=== PATIENT | male | born 1990 | race Caucasian/White ===

== ENCOUNTER 2021-05-25 19:24 | Emergency (ER) | payer OTHER ==
[~2021-05-25] VITALS: Ht 182.9 cm; Wt 117.9 kg
[2021-05-25 20:18] LABS: BASOPHIL 0.6 % (0-2); HCT 43.7 % (42.0-52.0); HGB 15.1 g/dl (13.2-18.0); LYMPHOCYTE 33.2 % (15-48); MCH 30.1 pg (25.0-31.0); MCHC 34.6 g/dL (32.0-36.0); MCV 87.1 fL (78.0-100.0); MONOCYTE 8.2 % (0-12); MPV 8.8 fL (6.0-9.5); NEUTROPHIL 55.8 % (41-80); NRBC 0; PLT 327 K/uL (150-400); RBC 5.02 M/uL (4.70-6.00); RDW 11.8 % (11.5-14.0); WBC 8.9 K/uL (4.0-10.5)
[2021-05-25 20:27] LABS: INR 1.01 (0.9-1.2); PROTHROMBIN TIME 12.7 SECONDS (11.8-13.4)
[2021-05-25 20:34] LABS: ALBUMIN 4.2 g/dL (3.4-5.0); ALKALINE PHOSHATASE 62 U/L (46-116); ALT 55 U/L (16-63); AST 32 U/L (15-37); BILIRUBIN - TOTAL 0.3 mg/dL (0.2-1.0); BUN 18 mg/dL (7-18); BUN/CREAT RATIO (CALC) 21.4 RATIO; CHLORIDE 99 mmol/L (98-107); CO2 (BICARBONATE) 28 mmol/L (21-32); CREATININE 0.84 mg/dL (0.67-1.17); GLOBULIN (CALCULATION) 3.7 g/dL; GLUCOSE 93 mg/dL (74-106); MAGNESIUM 1.9 mg/dL (1.8-2.4); TOTAL PROTEIN 7.9 g/dL (6.4-8.2)
[2021-05-25 20:35] LABS: BILIRUBIN NEGATIVE (NEGATIVE); BLOOD NEGATIVE Ery/uL (NEGATIVE); CLARITY CLEAR (CLEAR); COLOR YELLOW (YELLOW); GLUCOSE (U) NORMAL (NORMAL); LEUKOCYTES NEGATIVE Leu/uL (NEGATIVE); NITRITE NEGATIVE (NEGATIVE); PROTEIN NEGATIVE (NEGATIVE); SPECIFIC GRAVITY >=1.030 (1.001-1.030); UROBILINOGEN 0.2 mg/dL (0.2-1.0)
[2021-05-25 20:38] LABS: AMPHETAMINES NEGATIVE (NEGATIVE); BARBITURATES NEGATIVE (NEGATIVE); ECSTASY (MDMA) NEGATIVE (NEGATIVE); MARIJUANA (THC) POSITIVE (NEGATIVE); METHADONE NEGATIVE (NEGATIVE); OPIATES NEGATIVE (NEGATIVE); OXYCODONE NEGATIVE (NEGATIVE)
== END 2021-05-25 23:00 | disposition left against medical advice (07) ==
LOC: FER 19:24
PROVIDERS: Emergency Medicine
DX: F10.20 Alcohol dependence, uncomplicated (principal); F17.290 Nicotine dependence, other tobacco product, uncomplicated; Z20.822 Contact with and (suspected) exposure to COVID-19; Y90.0 Blood alcohol level of less than 20 mg/100 ml
CPT/HCPCS: 36415; 80053; 80305; 81003; 82140; 83735; 85025; 85610; G0480; J2060; J3411; J3475; J7030; U0002